=== PATIENT | female | born 1995 | race Caucasian/White ===

== ENCOUNTER 2016-10-05 16:34 | Emergency (ER) | payer MEDICAID, OTHER ==
[~2016-10-05] VITALS: Ht 172.7 cm; Wt 75.0 kg
[2016-10-05 16:36] VITALS: BP 120/70; PULSE 103; RESP 17; TEMP 98.9; O2SAT 99
[2016-10-05 18:53] LABS: BACTERIA, URINE MANY /hpf; BLOOD, URINE LARGE (NEG); COMMENT (UR) CULTURE INDICATED; CULTURE IF INDICATED CULTURE INDICATED; GLUCOSE,URINE NEG (NEG); KETONE, URINE 40 mg/dL (NEG); MUCUS URINE FEW /lpf (OCC); NITRITE,URINE NEG (NEG); PH, URINE 6.5 (5.0-8.5); SQUAMOUS EPITHELIAL CELL URINE 17 /hpf (0-5); URINE COLOR YELLOW (YELLW/STRAW)
[2016-10-05 21:57] VITALS: BP 126/60; PULSE 98; RESP 16; O2SAT 98
[2016-10-05] MEDS ORDERED: SODIUM CHLOR 0.9% 1000 ML INJ 1,000 ML IV ONE (22:00)
[2016-10-05] MEDS ORDERED: cefTRIAXone INJ 1,000 MG in SODIUM CHLORIDE 0.9% INJ 100 ML IV ONE (22:00)
--- NOTE | 2016-10-05 22:06 | PD ---
HPI Chief Complaint: Complaint Time Seen by Provider: 21:52 Travel History International Travel<30 days: No Contact w/Intl Traveler<30days: No Traveled to known affect area: No History of Present Illness HPI The patient is a 20 year old female who presents to the [facility] emergency department with a history of 3 weeks ago developing dysuria with urinary frequency and urgency. The patient reports that the symptoms have worsened since then. She reports that she has a vaginal discharge that spread to orange in color. She reports that she's got a rash on her inner thighs and inguinal lymphadenopathy bilaterally. She denies having any new sexual partners or concerns about sexually transmitted infections. She reports that she has had urinary tract infections in the past and the symptoms feel similar. She reports having low back pain bilaterally. She denies having any nausea or vomiting. She reports that over the last 2 weeks she has had intermittent diarrhea, one time per day. She denies having any blood in her stool or black or tarry stools. The patient reports having chills. She denies having any known fevers. On review of systems, the patient denies any recent cough, congestion, neck pain, chest pain, shortness of breath, abdominal pain, or neurologic symptoms. LMP: 3 weeks ago PFSH Past Medical History Narrative Medical The patient's past medical history is significant for genital herpes. Immunizations Current: Yes Tetanus Vaccination: > 5 Years Influenza Vaccination: No ?: Not Past Surgical History Narrative Surgical The patient's past surgical history is reportedly none. Social History Alcohol Use: No Tobacco Use: Yes (3 cigarettes per day) Substance Use: No Allergies-Medications (Allergen,Severity, Reaction): Coded Allergies: No Known Allergies (Unverified , 10/05/16) Reported Meds & Prescriptions Reported Meds & Active Scripts Active Flagyl (Metronidazole) 500 Mg Tab 500 Mg PO BID 7 Days Valtrex (Valacyclovir HCl) 1 Gm Tab 1,000 Mg PO TID Cipro (Ciprofloxacin HCl) 500 Mg Tab 500 Mg PO BID 14 Days Review of Systems Except as stated in HPI: all other systems reviewed are Neg General / Constitutional: Positive: Chills, No: Fever Eyes: No: Visual changes HENT: No: Headaches Cardiovascular: No: Chest Pain or Discomfort Respiratory: No: Shortness of Breath Gastrointestinal: Positive: Diarrhea, Changes in Bowel Habits, No: Nausea, Vomiting, Abdominal Pain, Hematemesis, Hematochezia, Constipation, Indigestion, Loss of Appetite Genitourinary: Positive: Urgency, Frequency, Dysuria, Hematuria Musculoskeletal: Positive: Myalgias, Pain Skin: No Rash Neurologic: No: Weakness Psychiatric: No: Depression Endocrine: No: Polydipsia Hematologic/Lymphatic: No: Easy Bruising Physical Exam Narrative General: The patient is a well-developed well-nourished female in no acute distress. Head and Neck exam: Head is normocephalic atraumatic. Eyes: EOMI, pupils are equal round and reactive to light. Nose: Midline septum with pink mucous membranes Mouth: Dentition unremarkable. Moist mucus membranes. Posterior oropharynx is not erythematous. No tonsillar hypertrophy. Uvula midline. Airway patent. Neck: No palpable lymphadenopathy. No nuchal rigidity. No thyromegaly. Cardiovascular: Regular rate and rhythm without murmurs, gallops, or rubs. Lungs: Clear to auscultation bilaterally. No wheezes, rhonchi, or rales. Abdomen: Soft, without tenderness to palpation in all 4 quadrants of the abdomen. No guarding, rebound, or rigidity. Normal bowel sounds are audible. No tenderness on palpation of McBurney's point. Negative Bradley's sign. Extremities: No clubbing, cyanosis, or edema. 2+ pulses in all 4 extremities. No Tenderness on palpation. Back: No spinous process tenderness to palpation. No costovertebral angle tenderness to palpation. Neurologic Exam: Grossly nonfocal. Skin Exam: No rash noted. Intact skin that is warm and dry. Gynecologic exam: The patient was placed in the dorsal lithotomy position. Her external genitalia were examined. She had erythematous papules scattered throughout her labia majora, minora with superficial ulceration consistent with an outbreak of herpes. On further questioning, the patient reports that she has had genital herpes in the past. The speculum was placed into her vagina and the cervix was identified. She has a yellow frothy vaginal discharge noted with strong odor.. No cervical friability. On Bimanual exam: she has no cervical motion tenderness. No adnexal tenderness or prominence noted on palpation. No uterine tenderness or enlargement noted on palpation. Data Data Last Documented VS Vital Signs Date Time Temp Pulse Resp B/P Pulse Ox O2 Delivery O2 Flow Rate FiO2 7/9/17 21:57 16 10/05/16 21:57 98 126/60 98 Room Air 10/05/16 16:36 98.9 Orders Urinalysis - C+S If Indicated (10/05/16 17:42) Urine Culture (10/05/16 17:45) Complete Blood Count With Diff (10/05/16 21:53) Basic Metabolic Panel (Bmp) (10/05/16 21:53) Iv Access Insert/Monitor (10/05/16 21:53) Ecg Monitoring (10/05/16 21:53) Oximetry (10/05/16 21:53) Sodium Chlor 0.9% 1000 Ml Inj (Ns 1000 M (10/05/16 22:00) Ceftriaxone Inj (Rocephin Inj) (10/05/16 22:00) Gc And Chlamydia Pcr (10/05/16 22:01) Wet Prep Profile (10/05/16 22:01) Valacyclovir (Valtrex) (10/05/16 23:45) Azithromycin Powd Pack (Zithromax Powd P (10/05/16 23:45) Labs Laboratory Tests Test 10/05/16 10/05/16 10/05/16 17:45 22:05 23:30 Urine Color YELLOW Urine Turbidity CLOUDY Urine pH 6.5 Urine Specific [place] 1.026 Urine Protein 100 mg/dL Urine Glucose (UA) NEG mg/dL Urine Ketones 40 mg/dL Urine Occult Blood LARGE Urine Nitrite NEG Urine Bilirubin NEG Urine Urobilinogen 2.0 MG/DL Urine Leukocyte Esterase LARGE Urine RBC /hpf Urine WBC /hpf Urine WBC Clumps OCC Urine Squamous Epithelial 17 /hpf Cells Urine Amorphous Sediment RARE Urine Bacteria MANY /hpf Urine Mucus FEW /lpf Microscopic Urinalysis Comment CULTURE INDICATED White Blood Count 7.6 TH/MM3 Red Blood Count 5.20 MIL/MM3 Hemoglobin 14.6 GM/DL Hematocrit 43.5 % Mean Corpuscular Volume 83.7 FL Mean Corpuscular Hemoglobin 28.1 PG Mean Corpuscular Hemoglobin 33.5 % Concent Red Cell Distribution Width 13.7 % Platelet Count 257 TH/MM3 Mean Platelet Volume 9.4 FL Neutrophils (%) (Auto) 73.9 % Lymphocytes (%) (Auto) 19.6 % Monocytes (%) (Auto) 4.6 % Eosinophils (%) (Auto) 1.4 % Basophils (%) (Auto) 0.5 % Neutrophils # (Auto) 5.6 TH/MM3 Lymphocytes # (Auto) 1.5 TH/MM3 Monocytes # (Auto) 0.3 TH/MM3 Eosinophils # (Auto) 0.1 TH/MM3 Basophils # (Auto) 0.0 TH/MM3 CBC Comment DIFF FINAL Differential Comment Sodium Level 137 MEQ/L Potassium Level 3.8 MEQ/L Chloride Level 104 MEQ/L Carbon Dioxide Level 24.3 MEQ/L Anion Gap 9 MEQ/L Blood Urea Nitrogen 10 MG/DL Creatinine 0.83 MG/DL Estimat Glomerular Filtration 87 ML/MIN Rate Random Glucose 158 MG/DL Calcium Level 9.0 MG/DL Clue Cells (Wet Prep) PRESENT Vaginal Trichomonas (Wet Prep) PRESENT Vaginal Yeast (Wet Prep) NONE SEEN MDM Medical Decision Making Medical Screen Exam Complete: Yes Emergency Medical Condition: Yes Medical Record Reviewed: Yes Differential Diagnosis cervicitis, versus trichomoniasis, versus yeast vaginitis, versus herpes, versus urinary tract infection Narrative Course During the course of the patients emergency department visit, the patients history, examination, and differential diagnosis were reviewed with the patient. The patient had IV access obtained and blood work sent for analysis. The patient was placed on a rigging supervisor with oximetry and blood pressure monitoring. A bedside test was negative. The patient was initially provided normal saline 1 L IV fluid bolus. After urinalysis revealed evidence of urinary tract infection with innumerable rbc's and wbc's the patient was given Rocephin 1 g IV. The patient was given Zithromax 1 g by mouth. The patient was given Valtrex 1 g by mouth. The patients laboratory studies were reviewed and remarkable for a white count of 7.6, hemoglobin 14.6, platelets 257 with 73.9 neutrophil, basic metabolic profile is remarkable for a glucose of 158, urinalysis shows cloudy urine, 100 protein, 40 ketones, large occult blood, large leukocyte esterase, innumerable rbc's innumerable wbc's occasional clumps 17 squamous epithelial cells, many bacteria, culture indicated. Wet prep was positive for bacterial vaginosis and trichomoniasis. The patient will be discharged home with a prescription for ciprofloxacin, Flagyl, and Valtrex. The patient is resting comfortably and feels better, is alert and in no distress. The patients results and examination findings were discussed with the patient. The repeat examination is unremarkable and benign. The history, exam, diagnostic testing, and current condition do not suggest any significant pathology to warrant further testing, continued ED treatment, admission, or surgical evaluation at this point. The vital signs have been stable. The patient does not have uncontrollable pain, intractable vomiting, or other significant symptoms. The patient's condition is stable and appropriate for discharge. The patient will pursue further outpatient evaluation with a primary care physician or other designated or consulting physician as indicated in the discharge instructions. The patient expressed understanding and was agreeable with this plan. Diagnosis Primary Impression: Urinary tract infection Qualified Code: N39.0 - Urinary tract infection with hematuria, site unspecified Additional Impressions: Genital herpes Qualified Code: A60.04 - Herpes simplex vulvovaginitis Bacterial vaginosis Trichomoniasis Referrals: [facility] Dept. 1 week Patient Instructions: Bacterial Vaginosis (ED), Cervicitis (ED), General Instructions, Genital Herpes Simplex (ED), Trichomoniasis (ED), Urinary Tract Infection in Women (ED) Med/Other Pt SpecificInfo: Prescription(s) given Scripts Metronidazole (Flagyl)500 Mg [id number] Mg PO BID 7 Days Ref 0 Prov:Little Sheehan MD 10/06/16 Valacyclovir (Valtrex)1 Gm Tab1,000 Mg PO TID #20 TAB Ref 0 Prov:Little Sheehan MD 10/05/16 Ciprofloxacin (Cipro)500 Mg [id number] Mg PO BID 14 Days Ref 0 Prov:Little Sheehan MD 10/05/16 Disposition: 01 DISCHARGE HOME Condition: Stable Little Sheehan MD Oct 05, 2016 22:06
[2016-10-05 22:11] LABS: AUTOMATED NEUTROPHIL # 5.6 TH/MM3 (1.8-7.7); BASOPHIL % 0.5 % (0.0-2.0); EOSINOPHIL # 0.1 TH/MM3 (0-0.4); EOSINOPHIL % 1.4 % (0.0-4.0); HEMATOCRIT 43.5 % (35.0-46.0); HEMO FLAGS DIFF FINAL; LYMPH % 19.6 % (9.0-44.0); LYMPHOCYTE # 1.5 TH/MM3 (1.0-4.8); MEAN CELL VOLUME 83.7 FL (80.0-100.0); MEAN CORPUSCULAR HEMOGLOBIN 28.1 PG (27.0-34.0); MEAN CORPUSCULAR HGB CONC 33.5 % (32.0-36.0); MONO % 4.6 % (0.0-8.0); NEUT % 73.9 % (16.0-70.0); PLATELET COUNT 257 TH/MM3 (150-450); RED CELL DISTRIBUTION WIDTH 13.7 % (11.6-17.2); WHITE BLOOD COUNT 7.6 TH/MM3 (4.0-11.0)
[2016-10-05 22:31] LABS: BICARBONATE 24.3 MEQ/L (21.0-32.0); POTASSIUM 3.8 MEQ/L (3.5-5.1)
[2016-10-05] MEDS ORDERED: CIPR-9 PO (23:36)
[2016-10-05] MEDS ORDERED: VALT1TAB PO (23:36)
[2016-10-05] MEDS ORDERED: AZITHROMYCIN PWD FOR SUSP 1 GM PACKET PO ONE (23:45)
[2016-10-05] MEDS ORDERED: valACYclovir HCL 500 MG TAB PO ONE (23:45)
[2016-10-06] MEDS ORDERED: METR-1 PO (00:09)
[2016-10-06 01:18] LABS: CHLAMYDIA PCR NOT DETECTED (NOT DETECT); NEISSERIA PCR NOT DETECTED (NOT DETECT)
== END 2016-10-06 00:27 | disposition home or self-care (01) ==
LOC: NEPE 16:34
DX: N39.0 Urinary tract infection, site not specified (principal); A60.00 Herpesviral infection of urogenital system, unspecified; N76.0 Acute vaginitis; A59.9 Trichomoniasis, unspecified; R59.1 Generalized enlarged lymph nodes; F17.210 Nicotine dependence, cigarettes, uncomplicated; Z79.899 Other long term (current) drug therapy
CPT/HCPCS: 80048; 81001; 84703; 85025; 87086; 87210; 87255; 87491; 87591; 96374; 99284; J0696; J7030

== ENCOUNTER 2016-11-14 17:14 | Emergency (ER) | payer OTHER ==
[~2016-11-14] VITALS: Ht 175.3 cm; Wt 68.2 kg
[~2016-11-14 17:14] MED LIST: CIPR-9 PO; METR-1 PO; VALT1TAB PO
[2016-11-14 17:16] VITALS: BP 124/70; PULSE 70; RESP 14; TEMP 98.4; O2SAT 98
--- NOTE | 2016-11-14 19:20 | PD ---
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 Complaining of shortness of breath and cough. Patient states she has a history of asthma and "COPD". Patient is here with her father who states that she has been "partying" for the past week in [place] with multiple sexual partners and reports of polysubstance use. Patient denies nausea, vomiting, or diarrhea. Patient states the last time she used IV drugs was yesterday. She is unsure if she could be . She states malodorous green vaginal discharge. She states she normally has an inhaler which she has not had for some time. She does smoke cigarettes. She denies alcohol use. She has no known drug allergies. [facility] Past Medical History Respiratory: Yes (COPD) Immunizations Current: Yes ?: Unknown LMP: 10/28/16 Social History Alcohol Use: No Tobacco Use: Yes Substance Use: Yes (crack) Allergies-Medications (Allergen,Severity, Reaction): Coded Allergies: No Known Allergies (Unverified , 11/14/16) Reported Meds & Prescriptions Reported Meds & Active Scripts Active Cipro (Ciprofloxacin HCl) 500 Mg Tab 500 Mg PO BID 14 Days Flagyl (Metronidazole) 500 Mg Tab 500 Mg PO BID 7 Days Review of Systems ROS Limitations: Poor Historian Except as stated in HPI: all other systems reviewed are Neg General / Constitutional: No: Fever, Chills Eyes: No: Visual changes HENT: No: Headaches Cardiovascular: No: Chest Pain or Discomfort Respiratory: Positive: Cough, Shortness of Breath, Wheezing Gastrointestinal: No: Nausea, Vomiting, Diarrhea, Abdominal Pain Genitourinary: Positive: Urgency, Frequency, Dysuria, Pelvic Pain, Discharge Musculoskeletal: No: Pain Skin: No Rash, No Itching Neurologic: No: Weakness Psychiatric: Positive: Substance Abuse, No: Anxiety, Depression, Suicidal Ideations, Homicidal Ideation Endocrine: No: Polydipsia Hematologic/Lymphatic: No: Easy Bruising Physical Exam Narrative GENERAL: Patient appears somewhat reserved but otherwise no acute distress. SKIN: Warm and dry. Patient has multiple injection sites without obvious signs of cellulitis or abscess. HEAD: Atraumatic. Normocephalic. EYES: Pupils equal and round. No scleral icterus. No injection or drainage. ENT: No nasal bleeding or discharge. Mucous membranes pink and moist. Pharynx is clear. Airway is patent. NECK: Trachea midline. Supple and nontender without lymphadenopathy. CARDIOVASCULAR: Regular rate and rhythm. No murmurs appreciated RESPIRATORY: No accessory muscle use. Clear to auscultation. Breath sounds equal bilaterally. GASTROINTESTINAL: Abdomen soft, moderate generalized suprapubic tenderness, nondistended. Hepatic and splenic margins not palpable. No CVA tenderness. PELVIC: Outer genitalia are somewhat erythematous and swollen, with no obvious lesions noted. Internal exam shows yellowish-green discharge, but no tenderness or friability is noted. Wet prep is sent to the lab. MUSCULOSKELETAL: Extremities without clubbing, cyanosis, or edema. No obvious deformities. NEUROLOGICAL: Awake and alert. No obvious cranial nerve deficits. Motor grossly within normal limits. Five out of 5 muscle strength in the arms and legs. Normal speech. PSYCHIATRIC: Appropriate mood and affect; insight and judgment normal. Data Data Last Documented VS Vital Signs Date Time Temp Pulse Resp B/P Pulse Ox O2 Delivery O2 Flow Rate FiO2 11/14/16 20:11 98 21 11/14/16 17:16 98.4 70 14 124/70 Orders Complete Blood Count With Diff (11/14/16 19:20) Comprehensive Metabolic Panel (11/14/16 19:20) Gc And Chlamydia Pcr (11/14/16 19:20) Wet Prep Profile (11/14/16 19:20) Urinalysis - C+S If Indicated (11/14/16 19:20) Iv Access Insert/Monitor (11/14/16 19:20) Ecg Monitoring (11/14/16 19:20) Ceftriaxone Inj (Rocephin Inj) (11/14/16 19:30) Azithromycin Powd Pack (Zithromax Powd P (11/14/16 19:30) Sodium Chloride 0.9% Flush (Ns Flush) (11/14/16 19:30) Ed Urine Pregnancytest Poc (11/14/16 19:20) Electrocardiogram (11/14/16 19:20) Drug Screen, Random Urine (11/14/16 19:20) Albuterol-Ipratropium Neb (Duoneb Neb) (11/14/16 19:30) Chest, Single Ap (11/14/16 19:23) Ketorolac Inj (Toradol Inj) (11/14/16 19:30) Urine Culture (11/14/16 19:40) Labs Laboratory Tests Test 11/14/16 19:40 White Blood Count 10.5 TH/MM3 Red Blood Count 4.75 MIL/MM3 Hemoglobin 13.9 GM/DL Hematocrit 41.3 % Mean Corpuscular Volume 86.9 FL Mean Corpuscular Hemoglobin 29.2 PG Mean Corpuscular Hemoglobin 33.6 % Concent Red Cell Distribution Width 15.4 % Platelet Count 209 TH/MM3 Mean Platelet Volume 8.8 FL Neutrophils (%) (Auto) 75.8 % Lymphocytes (%) (Auto) 16.3 % Monocytes (%) (Auto) 5.0 % Eosinophils (%) (Auto) 2.5 % Basophils (%) (Auto) 0.4 % Neutrophils # (Auto) 8.0 TH/MM3 Lymphocytes # (Auto) 1.7 TH/MM3 Monocytes # (Auto) 0.5 TH/MM3 Eosinophils # (Auto) 0.3 TH/MM3 Basophils # (Auto) 0.0 TH/MM3 CBC Comment DIFF FINAL Differential Comment Urine Color YELLOW Urine Turbidity CLOUDY Urine pH 7.5 Urine Specific [place] 1.025 Urine Protein 100 mg/dL Urine Glucose (UA) NEG mg/dL Urine Ketones NEG mg/dL Urine Occult Blood SMALL Urine Nitrite POS Urine Bilirubin NEG Urine Urobilinogen 2.0 MG/DL Urine Leukocyte Esterase LARGE Urine RBC 25 /hpf Urine WBC /hpf Urine Squamous Epithelial 15 /hpf Cells Urine Bacteria MANY /hpf Urine Mucus MOD /lpf Microscopic Urinalysis Comment CULTURE INDICATED Sodium Level 142 MEQ/L Potassium Level 3.5 MEQ/L Chloride Level 109 MEQ/L Carbon Dioxide Level 28.7 MEQ/L Anion Gap 4 MEQ/L Blood Urea Nitrogen 9 MG/DL Creatinine 0.94 MG/DL Estimat Glomerular Filtration 75 ML/MIN Rate Random Glucose 72 MG/DL Calcium Level 8.4 MG/DL Total Bilirubin 0.2 MG/DL Aspartate Amino Transf 8 U/L (AST/SGOT) Alanine Aminotransferase 16 U/L (ALT/SGPT) Alkaline Phosphatase 69 U/L Total Protein 6.6 GM/DL Albumin 3.4 GM/DL Urine Opiates Screen NEG Urine Barbiturates Screen NEG Urine Amphetamines Screen NEG Urine Benzodiazepines Screen POS Urine Cocaine Screen POS Urine Cannabinoids Screen POS MDM Medical Decision Making Medical Screen Exam Complete: Yes Emergency Medical Condition: Yes Medical Record Reviewed: Yes Differential Diagnosis Polysubstance abuse. Promiscuous sexual behavior. Urinary tract infection. Dysuria. Possible STD. . Narrative Course Patient appears medically stable at time of exam. Labs ordered including CBC, CMP, urinalysis. Wet prep will be collected with pelvic exam and GC chlamydia is sent with urine sample. Urine is checked. EKG and chest x-ray are ordered. Patient is given DuoNeb 1. IV access is obtained patient is given 1000 mg ceftriaxone IV as well as 1000 mg azithromycin by mouth. Patient is given 30 mg Toradol IV. Chest x-ray is unremarkable. EKG shows Urine is negative. Wet prep is pending. Urinalysis suggestive for urinary tract infection. Positive nitrites are noted. CBC is normal. CMP is normal. Urine drug screen is positive for cocaine, benzodiazepines, and marijuana. Patient is treated with ceftriaxone, as well as azithromycin. Patient will be continued on Cipro 500 mg twice a day 7 days. She also placed on Flagyl 500 mg 3 times a day 7 days. Urine culture is pending. Patient should follow-up with the [facility] local primary care physician as discussed. Diagnosis Primary Impression: Urinary tract infection Qualified Code: N30.00 - Acute cystitis without hematuria Additional Impression: STD (female) Referrals: [facility] (Out patient) [facility] Dept. Patient Instructions: General Instructions, Polysubstance Abuse (ED), Sexually Transmitted Diseases (ED) Additional Instructions: Urinalysis suggestive for urinary tract infection. Positive nitrites are noted. CBC is normal. CMP is normal. Urine drug screen is positive for cocaine, benzodiazepines, and marijuana. Patient is treated with ceftriaxone, as well as azithromycin. Patient will be continued on Cipro 500 mg twice a day 7 days. She also placed on Flagyl 500 mg 3 times a day 7 days. Urine culture is pending. Patient should follow-up with the [facility] primary care physician as discussed. Med/Other Pt SpecificInfo: Prescription(s) given Scripts Ciprofloxacin (Cipro)500 Mg [id number] Mg PO BID 14 Days Ref 0 Prov:Julio Cesar Perera MD 11/14/16 Metronidazole (Flagyl)500 Mg [id number] Mg PO BID 7 Days Ref 0 Prov:Julio Cesar Perera MD 11/14/16 Disposition: 01 DISCHARGE HOME Condition: Stable Prateek Littlejohn Nov 14, 2016 19:20
[2016-11-14] MEDS ORDERED: AZITHROMYCIN PWD FOR SUSP 1 GM PACKET PO ONE (19:30)
[2016-11-14] MEDS ORDERED: SODIUM CHLORIDE 0.9% FLUSH 10 ML FLUSH IVF PRN (19:30)
[2016-11-14] MEDS ORDERED: RESP: ALBUTEROL 2.5 MG/IPRATROPIUM 0.5 MG NEB (SCH) NEB ONE (19:30)
[2016-11-14] MEDS ORDERED: cefTRIAXone INJ 1,000 MG in SODIUM CHLORIDE 0.9% INJ 100 ML IV ONE (19:30)
[2016-11-14] MEDS ORDERED: KETOROLAC TROMETHAMINE 30 MG/ML (IVP) VIAL IV PUSH ONE (19:30)
--- NOTE | 2016-11-14 20:07 | RADRPT ---
EXAM DATE/TIME: 11/14/2016 19:38 [place] COMPARISON: No previous studies available for comparison. INDICATIONS : Shortness of breath and productive cough. MEDICAL HISTORY : Chronic obstructive pulmonary disease. Asthma SURGICAL HISTORY : None. ENCOUNTER: Initial ACUITY: 3 days PAIN SCORE: 5/10 LOCATION: Bilateral chest Middle. FINDINGS: A single view of the chest demonstrates the lungs to be symmetrically aerated without evidence of mas s, infiltrate or effusion. The cardiomediastinal contours are unremarkable. Osseous structures are intact. CONCLUSION: No evidence of acute cardiopulmonary disease. Darnell Radford MD on November 14, 2016 at 20:05 Board Certified Radiologist. This report was verified electronically.
[2016-11-14 20:11] VITALS: O2SAT 98
[2016-11-14 20:11] LABS: BACTERIA, URINE MANY /hpf; BASOPHIL % 0.4 % (0.0-2.0); BLOOD, URINE SMALL (NEG); COMMENT (UR) CULTURE INDICATED; CULTURE IF INDICATED CULTURE INDICATED; EOSINOPHIL # 0.3 TH/MM3 (0-0.4); EOSINOPHIL % 2.5 % (0.0-4.0); GLUCOSE,URINE NEG (NEG); HEMATOCRIT 41.3 % (35.0-46.0); HEMO FLAGS DIFF FINAL; KETONE, URINE NEG (NEG); LYMPH % 16.3 % (9.0-44.0); LYMPHOCYTE # 1.7 TH/MM3 (1.0-4.8); MEAN CELL VOLUME 86.9 FL (80.0-100.0); MEAN CORPUSCULAR HEMOGLOBIN 29.2 PG (27.0-34.0); MEAN CORPUSCULAR HGB CONC 33.6 % (32.0-36.0); MUCUS URINE MOD /lpf (OCC); NEUT % 75.8 % (16.0-70.0); PH, URINE 7.5 (5.0-8.5); PLATELET COUNT 209 TH/MM3 (150-450); RED BLOOD COUNT 4.75 MIL/MM3 (4.00-5.30); RED CELL DISTRIBUTION WIDTH 15.4 % (11.6-17.2); SQUAMOUS EPITHELIAL CELL URINE 15 /hpf (0-5); URINE COLOR YELLOW (YELLW/STRAW); WHITE BLOOD COUNT 10.5 TH/MM3 (4.0-11.0)
[2016-11-14 20:15] LABS: NITRITE,URINE POS (NEG)
[2016-11-14 20:19] LABS: ANION GAP 4 MEQ/L (5-15); AST (GOT) 8 U/L (15-37); BICARBONATE 28.7 MEQ/L (21.0-32.0); BLOOD UREA NITROGEN 9 MG/DL (7-18); CHLORIDE 109 MEQ/L (98-107); GLOMERULAR FILTRATION RATE 75 ML/MIN (>89); POTASSIUM 3.5 MEQ/L (3.5-5.1); SODIUM (NA) 142 MEQ/L (136-145)
[2016-11-14 20:23] LABS: ALKALINE PHOSPHATASE 69 U/L (45-117); ALT (GPT) 16 U/L (10-53); TOTAL BILIRUBIN ADULT 0.2 MG/DL (0.2-1.0)
[2016-11-14] MEDS ORDERED: METR-1 PO (20:43)
[2016-11-14] MEDS ORDERED: CIPR-9 PO (20:43)
[2016-11-14 22:14] LABS: CHLAMYDIA PCR NOT DETECTED (NOT DETECT); NEISSERIA PCR DETECTED (NOT DETECT)
--- NOTE | 2016-11-15 16:02 | EKG ---
Date Performed: 11/14/2016 Time Performed: 20:12:43 PTAGE: 20 years EKG: Sinus rhythm WITH SINUS ARRHYTHMIA NORMAL ECG NO PREVIOUS TRACING DOCTOR: Dmitri Vieira Interpretating Date/Time 11/15/2016 16:01:12
== END 2016-11-14 21:50 | disposition home or self-care (01) ==
LOC: NEPD 17:14
DX: N39.0 Urinary tract infection, site not specified (principal); B96.4 Proteus (mirabilis) (morganii) as the cause of diseases classified elsewhere; A54.02 Gonococcal vulvovaginitis, unspecified; J44.9 Chronic obstructive pulmonary disease, unspecified; F17.290 Nicotine dependence, other tobacco product, uncomplicated; F14.10 Cocaine abuse, uncomplicated
CPT/HCPCS: 71010; 80053; 80307; 81001; 84703; 85025; 87077; 87086; 87186; 87210; 87491; 87591; 93005; 94664; 96374; 96375; 99285; J0696; J1885